=== PATIENT | male | born 1980 | race Caucasian/White ===

== ENCOUNTER → 2025-02-19 | Day surgery (SDC) | payer BC ==
[~2025-02-19] VITALS: Ht 175.3 cm; Wt 79.4 kg
[~2025-02-19] MED LIST: ACETAMINOPHEN 1000MG/100ML 100 ML IV ONE; BUPIVACAINE HCL/PF 0.5% (5MG/ML) 10ML ONE; CEFAZOLIN SODIUM 1000MG/VIAL ONE; DEXAMETHASONE 4MG/ML 1ML VIAL ONE; FAMOTIDINE 20MG/2ML VIAL IV ONE; FENTANYL CITRATE/PF 50MCG/ML 2ML VIAL IV PRN; FENTANYL CITRATE/PF 50MCG/ML 2ML VIAL ONE; HYDRALAZINE 20MG/ML VIAL IV PRN; HYDROMORPHONE HCL/PF 1MG/ML INJ IV PRN; KETOROLAC 30MG/ML VIAL ONE; LABETALOL 5MG/ML 4ML INJ IV PRN; ONDANSETRON HCL 4MG/2ML INJ IV PRN; ONDANSETRON HCL 4MG/2ML INJ ONE; PROPOFOL 200MG/20ML VIAL IV ONE; ROCURONIUM BROMIDE 10MG/ML VIAL 5ML IV ONE; SKIN ADHESIVE 0.7 GM EA TOP ONE; SODIUM CHLORIDE 0.9% 1,000 ML IV SCH
== END | disposition home or self-care (01) ==
LOC: OR 06:10
PROVIDERS: ATTEND Surgery
DX: K42.9 Umbilical hernia without obstruction or gangrene (principal); F43.22 Adjustment disorder with anxiety; Z79.899 Other long term (current) drug therapy; Z98.890 Other specified postprocedural states
CPT/HCPCS: 49593; J3010; J0665; J0690; J1100; J1308; J1885; J2405; J2704; J3490; C1781; J0131